=== PATIENT | female | born 1970 | race Caucasian/White ===

== ENCOUNTER 2017-06-02 19:43 | Emergency (ER) | payer OTHER ==
[~2017-06-02] VITALS: Ht 162.6 cm; Wt 65.5 kg
[~2017-06-02 19:43] MED LIST: CEPH500C PO; CIPR500T4 PO; NITR-58 PO; SUMA100T4 PO; TYL650R PR
[2017-06-02 19:46] VITALS: Ht 162.6 cm; Wt 65.5 kg
--- NOTE | 2017-06-02 21:14 | ERD ---
ER Documentation Chief Complaint Date/Time DATE: 06/02/17 TIME: 21:10 Chief Complaint abscess right 2nd toe HPI This 46-year-old female presents to emergency department for evaluation of right foot erythema, edema, and pain. Patient reports that 2nd toe is swollen and painful to ambulate, patient denies any injury or breaks to her skin. Patient has been wearing sandals but denies any abrasions laceration or insect bite.. pt has used Neosporin without improvement of symptoms ROS All systems reviewed and are negative except as per history of present illness. Medications Home Meds Active Scripts Nitrofurantoin Monohyd Macrocr* (Macrobid*) 100 Mg Capsr, 100 MG PO BID for 7 Days, CAP Prov:TANIA NAQVI 10/02/16 Cephalexin* (Cephalexin*) 500 Mg Capsule, 500 MG PO Q8 for 10 Days, CAP Prov:QUAN WILKS MD 10/29/15 Ciprofloxacin Hcl* (Ciprofloxacin Hcl*) 500 Mg Tablet, 500 MG PO BID for 10 Days , TAB Prov:QUAN WILKS MD 10/29/15 Acetaminophen* (Acephen*) 650 Mg Supp, 650 MG VA Q6H Y for PAIN, #30 SUPP Prov:QUAN WILKS MD 10/29/15 Reported Medications Sumatriptan Succinate* (Sumatriptan Succinate*) 100 Mg Tablet, 100 MG PO TID Y for HEADACHE, TAB May repeat after 2 hours if needed; MAX 200 mg/24 hours 10/27/15 Allergies Allergies: Coded Allergies: No Known Allergy (Unverified , 10/25/15) PMhx/Soc History of Surgery: No Anesthesia Reaction: No Hx Neurological Disorder: No Hx Respiratory Disorders: No Hx Cardiac Disorders: No Hx Psychiatric Problems: No Hx Miscellaneous Medical Probl: Yes (migraines) Hx Alcohol Use: No Hx Substance Use: No Hx Tobacco Use: No Physical Exam Vitals Vital Signs Date Time Temp Pulse Resp B/P Pulse Ox O2 Delivery O2 Flow Rate FiO2 06/02/17 19:46 97.8 76 20 157/88 100 Vitals stable, triage notes reviewed Physical Exam Const: Well-appearing, well-hydrated, no acute distress Head: Atraumatic Eyes: Normal Conjunctiva, PERRLA, EOM ENT: Normal External Ears, Nose and Mouth mucous membranes moist Neck: Full range of motion..~ No meningismus. Resp: Respirations even and unlabored, no respiratory distress Cardio: Abd: Lower Extremity - bilateral: Skin: Skin intact without obvious deformity or external trauma, patient' s second phalanx is edematous with bright red erythema extending to metatarsals. Nail is polished, skin folds without edema or tenderness Compartments: Soft Motor: Full active range of motion hip/knee/ankle/foot Sensation: Intact to light touch FDWS/MF/LF/P surfaces. Bones: Nontender pelvis/knee/proximal tibia/ malleoli/foot Joints: No effusion or laxity Pulses/Perfusion: 2+ DP, Capillary refill < 2 seconds Back: Neur: Awake and alert Psych: Normal Mood and Affect Procedures/MDM This pleasant 46-year-old female presents to emergency department for evaluation of erythema, edema and pain of right foot, second phalanx. Patient' s history is unremarkable for injury. Physical exam supports an infectious process. Patient denies any prior episodes of cellulitis, pre-existing left edema or venous insufficiency. Patient denies any tinea pedis. No suspicion for necrotizing fasciitis, thrombophlebitis or DVT. No physical evidence of insect bites or contact dermatitis. This does not appear to be a fixed drug reaction. Patient will be treated for cellulitis with Bactrim, Keflex, Motrin for pain, rest, keep leg elevated as needed as needed pain response. Take all medication as prescribed, follow-up with primary care physician for reevaluation and 2 days or after antibiotic course is complete. I feel the patient is stable for discharge at this time. I have discussed results, examination findings, the treatment plan with the patient and family present prior to discharge. Indications for emergent reevaluation, side effects of medication were also discussed. All questions were answered. Patient verbalizes understanding and agrees with plan of care. Departure Diagnosis: Primary Impression: Cellulitis Site of cellulitis: extremity Site of cellulitis of extremity: lower extremity Laterality: right Qualified Code: L03.115 - Cellulitis of right lower extremity Patient Instructions: Cellulitis [facility] Additional Instructions: Thank you for for coming to [facility] for your care today. Please ask your nurse or provider if you have questions about your care today and do not leave until all your questions have been answered. Please use any medications given as directed and follow-up with your doctor (or the doctor you were referred to) in the next 2-3 days. If you do not have a primary care doctor you may follow up [place] [facility] [place] You may also use motrin and tylenol as needed for fever and/or pain unless instructed otherwise by your provider or nurse. Indications for more urgent follow-up have been discussed, but you may return to the Emergency Department at ANY time for any worrisome or worsening symptoms. If you have abdominal pain, please know that no test or exam you received is perfect and you should follow up within 8 hours for continued pain. If you had any imaging studies today, such as an X-Ray or CT Scan, these studies will be reviewed later by a radiologist. You will be called if there are important findings that were not identified today, so make sure the contact information you provided at registration is correct. If you received any narcotic pain control medicine today, such as Vicodin, Morphine or Dilaudid, your coordination and judgment may be affected for a number of hours. Please do not drive or operate heavy machinery, and you may want someone to assist you at home. If you were given a prescription for narcotic medication, be aware that it is very addictive- use sparingly and only if necessary. BENY ISBELL Jun 02, 2017 21:14
[2017-06-02] MEDS ORDERED: CEPH-443 PO (21:41)
[2017-06-02] MEDS ORDERED: SULF1TAB31 PO (21:41)
[2017-06-02] MEDS ORDERED: IBUP400T22 PO (21:42)
== END 2017-06-02 22:20 | disposition home or self-care (01) ==
LOC: FTE 19:43
DX: L03.115 Cellulitis of right lower limb (principal)
CPT/HCPCS: 99284

== ENCOUNTER 2019-03-08 09:33 | Emergency (ER) | payer OTHER ==
[~2019-03-08] VITALS: Wt 65.0 kg
[~2019-03-08 09:33] MED LIST changes: +CEPH-443 PO; +IBUP-1561 PO; +SULF1TAB31 PO
[2019-03-08 09:36] VITALS: BP 150/77; PULSE 82; RESP 18
[2019-03-08] MEDS ORDERED: FLUT9.9S NASAL (10:28)
[2019-03-08] MEDS ORDERED: IBUP-1542 PO (10:28)
--- NOTE | 2019-03-08 12:53 | ERD ---
ER Documentation Chief Complaint Chief Complaint cough and congestion and intermittent fever and sore throat for a few days. HPI Patient is a 48-year-old female with no medical problems who presents with runny nose. The patient has runny nose, sore throat, headaches over the past 3 days. She denies fevers. She tried Tylenol. Son is sick with similar type symptoms as well. ROS All systems reviewed and are negative except as per history of present illness. Medications Home Meds Active Scripts Ibuprofen* (Motrin*) 600 Mg Tab, 600 MG PO Q6H PRN for PAIN AND OR ELEVATED TEMP, #30 TAB Prov:JOO COTA MD 03/08/19 Fluticasone Propionate (Flonase Allergy Relief) 9.9 Ml [place].susp, 1 SPRAY NASAL DAILY, #1 BOTTLE TO EACH NOSTRIL Prov:JOO COTA MD 03/08/19 Ibuprofen* (Motrin*) 400 Mg Tab, 400 MG PO Q6, #30 TAB Prov:AKILAH,BENY 06/02/17 Sulfamethoxazole/Trimethoprim* (Bactrim Ds* Tablet) 1 Each Tablet, 1 TAB PO BID, #14 TAB Prov:AKILAH,BENY 06/02/17 Cephalexin* (Keflex*) 500 Mg Capsule, 500 MG PO QID for 10 Days, CAP Prov:AKILAH,BENY 06/02/17 Nitrofurantoin Monohyd Macrocr* (Macrobid*) 100 Mg Capsr, 100 MG PO BID for 7 Days, CAP Prov:TANIA NAQVI 10/02/16 Cephalexin* (Cephalexin*) 500 Mg Capsule, 500 MG PO Q8 for 10 Days, CAP Prov:QUAN WILKS MD 10/29/15 Ciprofloxacin Hcl* (Ciprofloxacin Hcl*) 500 Mg Tablet, 500 MG PO BID for 10 Days, TAB Prov:QUAN WILKS MD 10/29/15 Acetaminophen* (Acephen*) 650 Mg Supp, 650 MG [place] Q6H PRN for PAIN, #30 SUPP Prov:QUAN WILKS MD 10/29/15 Reported Medications Sumatriptan Succinate* (Sumatriptan Succinate*) 100 Mg Tablet, 100 MG PO TID PRN for HEADACHE, TAB May repeat after 2 hours if needed; MAX 200 mg/24 hours 10/27/15 Allergies Allergies: Coded Allergies: No Known Allergy (Unverified , 10/25/15) PMhx/Soc History of Surgery: Yes (, TUBAL LIGATION) Anesthesia Reaction: No Hx Neurological Disorder: No Hx Respiratory Disorders: No Hx Cardiac Disorders: No Hx Psychiatric Problems: No Hx Miscellaneous Medical Probl: Yes (migraines) Hx Alcohol Use: No Hx Substance Use: No Hx Tobacco Use: No FmHx Family History: No diabetes Physical Exam Vitals Vital Signs Date Temp Pulse Resp B/P (MAP) Pulse Ox O2 O2 Flow FiO2 Time Delivery Rate 03/08/19 98.6 82 18 150/77 98 09:36 (101) Physical Exam Const: No acute distress Head: Atraumatic Eyes: Normal Conjunctiva ENT: Normal External Ears, Nose and Mouth. Neck: Full range of motion. No meningismus. Resp: Clear to auscultation bilaterally Cardio: Regular rate and rhythm, no murmurs Abd: Soft, non tender, non distended. Normal bowel sounds Skin: No petechiae or rashes Back: No midline or flank tenderness Ext: No cyanosis, or edema Neur: Awake and alert Psych: Normal Mood and Affect Procedures/MDM Patient is a 48-year-old female presents with symptoms consistent with an upper respiratory infection which is viral in nature. I do not believe patient requires antibiotics at this time. She is well-appearing well-hydrated. She wi ll be discharged but will need to follow-up with her primary doctor. She can return for any worsening symptoms. Departure Diagnosis: Primary Impression: URI (upper respiratory infection) URI type: unspecified URI Qualified Codes: J06.9 - Acute upper respiratory infection, unspecified Condition: Fair Patient Instructions: Uri, Viral, No Abx (Adult) Referrals: Your doctor Additional Instructions: Llame al doctor MAANA y tyrese cristopher JUNITO PARA DENTRO DE 1-2 BLOOM.Dgale a la secretaria que nosotros le instruimos hacer esta junito.Avise o llame si gama condicin se empeora antes de la junito. Regresa aqui si peor o no mejor. JOO COTA MD Mar 08, 2019 12:53
== END 2019-03-08 10:25 | disposition home or self-care (01) ==
LOC: FTE 09:33
DX: J06.9 Acute upper respiratory infection, unspecified (principal)
CPT/HCPCS: 99282